=== PATIENT | male | born 1965 | race Asian ===

== ENCOUNTER 2024-05-10 18:18 | Emergency (ER) | payer OTHER ==
[~2024-05-10] VITALS: Ht 175.3 cm; Wt 63.6 kg
[~2024-05-10 18:18] MED LIST: DIVA-112 PO; PHEN60TA15 PO
[2024-05-10 18:40] LABS: GLUCOMETER DEV NAME(LOC) ER.7; GLUCOSE,POINT OF CARE 125 MG/DL (70-110)
[2024-05-10] MEDS ORDERED: BACI28.410 TP (18:52)
[2024-05-10] MEDS: PERTUSS(ACELL),DIPH,TET/PF 0.5 ML SYRINGE [ADULT] IM. ONE (19:40)
[2024-05-10] MEDS: BACITRACIN 0.9 GM PACKET OINTMENT TP ONE (19:40)
[2024-05-10 19:47] VITALS: BP 119/68; PULSE 70; RESP 18; TEMP 98.3; O2SAT 100
== END 2024-05-10 21:16 | disposition home or self-care (01) ==
LOC: EMS 18:18
DX: S61.216A Laceration without foreign body of right little finger without damage to nail, initial encounter (principal); E11.9 Type 2 diabetes mellitus without complications; W26.0XXA Contact with knife, initial encounter; Y93.89 Activity, other specified; Y92.89 Other specified places as the place of occurrence of the external cause; Y99.0 Civilian activity done for income or pay
CPT/HCPCS: 12001; 82962; 90471; 90715; 99283